=== PATIENT | male | born 1970 | race Two or more races ===

== ENCOUNTER 2017-01-29 15:29 | Emergency (ER) | payer BC ==
[~2017-01-29] VITALS: Ht 165.1 cm; Wt 74.8 kg
[2017-01-29 15:41] VITALS: BP 125/84
[2017-01-29] MEDS ORDERED: KETOROLAC TROMETHAMINE 30 MG/ML SYRINGE. IV ONE (16:00)
--- NOTE | 2017-01-29 16:12 | PHYS DOC ---
Past Medical History Past Medical History: No Pertinent History Past Surgical History: No Surgical History Alcohol Use: None Drug Use: None Adult General Chief Complaint Chief Complaint: FLANK PAIN [facility] HPI 46-year-old male who states she's had worsening right sided flank pain for the last 3-4 days. He denies any injury to his back. He states his pain is all localized to right flank region and does not radiate. He denies any abdominal pain. He states bowel movement been normal. He denies any dysuria or hematuria. He denies any fever or chills. He denies any nausea or vomiting. He denies any history of health problems. He does not take any medications. He denies any known allergies. He currently rates his pain a 9 out of 10 all localized to the right flank region. He is speaking in complete sentences and does not appear to be in any distress. Review of Systems Review of Systems Constitutional: Denies fever or chills [] Eyes: Denies change in visual acuity, redness, or eye pain [] HENT: Denies nasal congestion or sore throat [] Respiratory: Denies cough or shortness of breath [] Cardiovascular: No additional information not addressed in HPI [] GI: Denies abdominal pain, nausea, vomiting, bloody stools or diarrhea [] : Denies dysuria or hematuria [] Musculoskeletal: Denies back pain or joint pain [] Integument: Denies rash or skin lesions [] Neurologic: Denies headache, focal weakness or sensory changes [] Endocrine: Denies polyuria or polydipsia [] Current Medications Current Medications Current Medications Medications (Trade) Dose Ordered [facility] [place] Start Time Stop Time Status Last Admin Dose Admin Ketorolac Tromethamine (Toradol) 30 mg 1X ONCE 01/29/17 16:00 01/29/17 16:01 DC 01/29/17 16:37 30 MG Allergies Allergies Allergies Coded Allergies Type Severity Reaction Last Updated Verified No Known Drug Allergies 01/29/17 No Physical Exam Physical Exam Constitutional: Well developed, well nourished, no acute distress, non-toxic appearance. [] HENT: Normocephalic, atraumatic, bilateral external ears normal, oropharynx moist, no oral exudates, nose normal. [] Eyes: PERRLA, EOMI, conjunctiva normal, no discharge. [] Neck: Normal range of motion, no tenderness, supple, no stridor. [] Cardiovascular:Heart rate regular rhythm, no murmur [] Lungs & Thorax: Bilateral breath sounds clear to auscultation [] Abdomen: Bowel sounds normal, soft, no tenderness, no masses, no pulsatile masses. [] Skin: Warm, dry, no erythema, no rash. [] Back: No tenderness, right CVA tenderness. [] Extremities: No tenderness, no cyanosis, no clubbing, ROM intact, no edema. [] Neurologic: Alert and oriented X 3, normal motor function, normal sensory function, no focal deficits noted. [] Psychologic: Affect normal, judgement normal, mood normal. [] Current Patient Data Vital Signs Vital Signs Date Time Temp Pulse Resp B/P Pulse Ox O2 Delivery O2 Flow Rate FiO2 01/29/17 15:41 98.4 74 20 125/84 99 Room Air 98.4 Lab Values Laboratory Tests Test 01/29/17 16:30 01/29/17 16:50 White Blood Count 9.7x10^3/uL (4.0-11.0) Red Blood Count 4.95x10^6/uL (4.30-5.70) Hemoglobin 13.2g/dL (13.0-17.5) Hematocrit 41.2% (39.0-53.0) Mean Corpuscular Volume 83fL (79-100) Mean Corpuscular Hemoglobin 27pg (25-35) Mean Corpuscular Hemoglobin Concent 32g/dL (31-37) Red Cell Distribution Width 14.4% (11.5-14.5) Platelet Count 143x10^3/uL (140-400) Neutrophils (%) (Auto) 73% (31-73) Lymphocytes (%) (Auto) 11% (24-48) L Monocytes (%) (Auto) 14% (0-9) H Eosinophils (%) (Auto) 1% (0-3) Basophils (%) (Auto) 0% (0-3) Neutrophils # (Auto) 7.1x10^3uL (1.8-7.7) Lymphocytes # (Auto) 1.1x10^3/uL (1.0-4.8) Monocytes # (Auto) 1.4x10^3/uL (0.0-1.1) H Eosinophils # (Auto) 0.1x10^3/uL (0.0-0.7) Basophils # (Auto) 0.0x10^3/uL (0.0-0.2) Sodium Level 143mmol/L (136-145) Potassium Level 4.1mmol/L (3.5-5.1) Chloride Level 107mmol/L (98-107) Carbon Dioxide Level 27mmol/L (21-32) Anion Gap 9 (6-14) Blood Urea Nitrogen 14mg/dL (8-26) Creatinine 1.0mg/dL (0.7-1.3) Estimated GFR (Cockcroft-Gault) 79.8 Glucose Level 95mg/dL (70-99) Calcium Level 8.8mg/dL (8.5-10.1) Urine Collection Type Unknown Urine Color Yellow Urine Clarity Clear Urine pH 6.0 Urine Specific [place] >=1.030 Urine Protein Negativemg/dL (NEG-TRACE) Urine Glucose (UA) Negativemg/dL (NEG) Urine Ketones (Stick) Negativemg/dL (NEG) Urine Blood Negative (NEG) Urine Nitrite Negative (NEG) Urine Bilirubin Negative (NEG) Urine Urobilinogen Dipstick 0.2mg/dL (0.2 mg/dL) Urine Leukocyte Esterase Negative (NEG) Urine RBC Occ/HPF (0-2) Urine WBC 0/HPF (0-4) Urine Bacteria 0/HPF (0-FEW) Urine Mucus Mod/LPF Laboratory Tests 01/29/17 16:30 Laboratory Tests 01/29/17 16:30 EKG EKG [] Radiology/Procedures Radiology/Procedures [] Course & Med Decision Making Course & Med Decision Making Pertinent Labs and Imaging studies reviewed. (See chart for details) This otherwise healthy 46-year-old male with isolated right flank pain will have laboratory workup and imaging to rule out any acute cause specifically ureteral stone. A dose of Toradol will be given for pain. Laboratory workup was unremarkable. A CT of his abdomen and pelvis without contrast did not reveal any evidence of ureteral calculi or obstructive uropathy. He does have small bilateral renal cysts and a renal sonogram will be recommended. His pain is likely musculoskeletal in light of his negative workup. I will intake counselor him to continue to take ibuprofen and will add a muscle relaxant. I'll instruct him to avoid any strenuous exercise or activities. Dragon Disclaimer Dragon Disclaimer This electronic medical record was generated, in whole or in part, using a voice recognition dictation system. Departure Departure Impression: Primary Impression: Flank pain Disposition: 01 HOME, SELF-CARE Admitting Physician: Other Condition: STABLE Referrals: NO PCP (PCP) Patient Instructions: Flank Pain, [id number] Additional Instructions: Please continue to take motrin every 6 hours for your pain and take your muscle relaxant as prescribed. Follow up closely with your primary doctor in the next 2 -3 days for your symptoms. Return to the ER if you develop any worsening of your symptoms. Scripts Cyclobenzaprine Hcl 10 Mg [id number] Mg PO TID #15 TAB Prov:DION HALLMAN DO 01/29/17 DION HALLMAN DO Jan 29, 2017 16:12
--- NOTE | 2017-01-29 16:39 | RAD ---
EXAM: Abdomen and pelvis CT without intravenous contrast. HISTORY: Right flank pain. TECHNIQUE: Computed tomographic images of the abdomen and pelvis were obtained without contrast. Multiplanar reformatting was performed. COMPARISON: None. FINDINGS: Evaluation of the lower thorax demonstrates right posterior dependent and basilar atelectasis or scarring. There is no infiltrate or effusion. No hepatic lesion is seen. The gallbladder, pancreas, spleen and adrenal glands are unremarkable. There is a 1.6 cm left renal cyst. There is a 1.3 cm right renal cyst. There is no evidence of nephrolithiasis or obstructive uropathy. There is a phlebolith within the right hemipelvis no pathologically enlarged lymph node is seen. There is no suspicious osseous lesion. There is a transitional lumbosacral segment. IMPRESSION: 1. No evidence of nephrolithiasis or obstructive uropathy. 2. Small bilateral renal cysts. Renal sonography can be performed to confirm benignity. PQRS Compliance Statement: One or more of the following individualized dose reduction techniques were utilized for this examination: 1. Automated exposure control 2. Adjustment of the mA and/or kV according to patient size 3. Use of iterative reconstruction technique
[2017-01-29 16:48] LABS: BASO % 0 % (0-3); EOS % 1 % (0-3); HEMATOCRIT 41.2 % (39.0-53.0); HEMOGLOBIN 13.2 g/dL (13.0-17.5); LYMPH # 1.1 x10^3/uL (1.0-4.8); LYMPH % 11 % (24-48); MEAN CORPUSCULAR HEMOGLOBIN 27 pg (25-35); MEAN CORPUSCULAR HGB CONC 32 g/dL (31-37); MEAN CORPUSCULAR VOLUME 83 fL (79-100); MONO % 14 % (0-9); NEUT % 73 % (31-73); PLATELET COUNT 143 x10^3/uL (140-400); RED BLOOD COUNT 4.95 x10^6/uL (4.30-5.70); RED CELL DISTRIBUTION WIDTH 14.4 % (11.5-14.5); WHITE BLOOD COUNT 9.7 x10^3/uL (4.0-11.0)
[2017-01-29 16:56] LABS: BILIRUBIN,URINE NEGATIVE (NEG); GLUCOSE,URINE NEGATIVE (NEG); NITRITE,URINE NEGATIVE (NEG); PROTEIN,URINE NEGATIVE (NEG-TRACE); UROBILINOGEN,URINE 0.2 mg/dL (0.2 mg/dL)
[2017-01-29 17:02] LABS: CALCIUM 8.8 mg/dL (8.5-10.1); GFR 79.8; POTASSIUM 4.1 mmol/L (3.5-5.1)
[2017-01-29 17:02] LABS: BACTERIA,URINE 0 /HPF (0-FEW); RBC,URINE OCC /HPF (0-2); WBC,URINE 0 /HPF (0-4)
[2017-01-29] MEDS ORDERED: CYCL10TA2 PO (17:13)
== END 2017-01-29 17:46 | disposition home or self-care (01) ==
LOC: ER 15:29
DX: R10.9 Unspecified abdominal pain (principal)
CPT/HCPCS: 36415; 74176; 80048; 81001; 85027; 96374; 99285; J1885

== ENCOUNTER 2018-08-15 15:10 | Emergency (ER) | payer BC ==
[~2018-08-15] VITALS: Ht 165.1 cm; Wt 74.8 kg
[~2018-08-15 15:10] MED LIST: CYCL10TA2 PO
[2018-08-15 15:19] VITALS: BP 121/82
[2018-08-15] MEDS ORDERED: DICL50TA4 PO (15:46)
[2018-08-15] MEDS ORDERED: CYCL10TA2 PO (15:46)
[2018-08-15] MEDS ORDERED: METH4TAB2 PO (15:46)
--- NOTE | 2018-08-15 15:46 | PHYS DOC ---
Past Medical History Past Medical History: Other Additional Past Medical Histor: back pain Past Surgical History: No Surgical History Alcohol Use: Occasionally Drug Use: None Adult General Chief Complaint Chief Complaint: BACK PAIN OR INJURY HPI HPI Patient is a 48 year old male who presents with 8 out of 10 sharp intermittent bilateral low back pain worse on movement that began 4 days ago. Patient denies any known injury. He states he has had similar pain before. He states he was given some pain medications and that relieved his symptoms. Patient denies any loss of bowel bladder function. Denies any urinary symptoms. Review of Systems Review of Systems Constitutional: Denies fever or chills [] GI: Denies abdominal pain, nausea, vomiting, bloody stools or diarrhea [] : Denies dysuria or hematuria [] Musculoskeletal: Reports bilateral low back pain Integument: Denies rash or skin lesions [] Neurologic: Denies headache, focal weakness or sensory changes [] All other systems were reviewed and found to be within normal limits, except as documented in this note. Allergies Allergies Allergies Coded Allergies Type Severity Reaction Last Updated Verified No Known Drug Allergies 01/29/17 No Physical Exam Physical Exam Constitutional: Well developed, well nourished, no acute distress, non-toxic appearance. [] Abdomen: Bowel sounds normal, soft, no tenderness, no masses, no pulsatile masses. [] Skin: Warm, dry, no erythema, no rash. [] Back: No tenderness, no CVA tenderness. [] Extremities: No tenderness, no cyanosis, no clubbing, ROM intact, no edema. [] Neurologic: Alert and oriented X 3, normal motor function, normal sensory function, no focal deficits noted. [] Psychologic: Affect normal, judgement normal, mood normal. [] Current Patient Data Vital Signs Vital Signs Date Time Temp Pulse Resp B/P (MAP) Pulse Ox O2 Delivery O2 Flow Rate FiO2 08/15/18 15:19 98.1 90 20 121/82 (95) 100 Room Air 98.1 EKG EKG [] Radiology/Procedures Radiology/Procedures [] Course & Med Decision Making Course & Med Decision Making Pertinent Labs and Imaging studies reviewed. (See chart for details) This is a 48-year-old male patient presenting to the ED today with low back pain , no known injury, patient appears musculoskeletal, has had similar symptoms before. Does not have any cauda equina syndrome symptoms. Will be discharged with cyclobenzaprine, Medrol Dosepak and diclofenac. Follow-up with PCP in 1-2 weeks. Heat recommended to the low back. Alfredo Disclaimer Alfredo Disclaimer This electronic medical record was generated, in whole or in part, using a voice recognition dictation system. Departure Departure Impression: Primary Impression: Low back pain Disposition: HOME, SELF-CARE Condition: STABLE Referrals: NO PCP (PCP) Follow-up with your own doctor in 1-2 weeks Patient Instructions: Back Pain, Adult, [id number] Additional Instructions: You were evaluated in the emergency room for low back pain, take the prescribed medications as ordered. Apply heat to the affected area. Avoid heavy lifting for 3 days. Follow up with your doctor as needed Scripts Methylprednisolone (MEDROL) 4 Mg Tab.ds.pk 1 PKG PO UD, #1 PKG Prov: ISABELLA STANLEY APRN 08/15/18 Diclofenac Sodium (DICLOFENAC SODIUM) 50 Mg Tablet.dr 1 TAB PO BID, #30 TAB 0 Refills Prov: ISABELLA STANLEY APRN 08/15/18 Cyclobenzaprine Hcl (CYCLOBENZAPRINE HCL) 10 Mg Tablet 1 TAB PO TID, #30 TAB Prov: ISABELLA STANLEY APRN 08/15/18 Problem Qualifiers Primary Impression: Low back pain Chronicity: acute Back pain laterality: bilateral Sciatica presence: without sciatica Qualified Codes: M54.5 - Low back pain ISABELLA STANLEY APRN Aug 15, 2018 15:46
== END 2018-08-15 15:50 | disposition home or self-care (01) ==
LOC: ER 15:10
DX: M54.5 Low back pain (principal)
CPT/HCPCS: 99283

== ENCOUNTER 2019-06-21 10:20 | Emergency (ER) | payer SELFPAY ==
[~2019-06-21] VITALS: Ht 170.2 cm; Wt 74.8 kg
[~2019-06-21 10:20] MED LIST changes: +DICL50TA4 PO; +METH4TAB2 PO
[2019-06-21 10:29] VITALS: BP 144/95
--- NOTE | 2019-06-21 11:13 | PHYS DOC ---
Past Medical History Past Medical History: Other Additional Past Medical Histor: back pain Past Surgical History: No Surgical History Alcohol Use: Occasionally Drug Use: None Adult General Chief Complaint Chief Complaint: KNEE INJURY HPI HPI Patient is a 49 year old male who presents with complaining of left knee pain. Patient complaining of nontraumatic left knee pain for the last 2 weeks as a constant sharp pain that getting worse at night and with walking. Patient rated his pain 5/10 in ER and associated increased to 10 over 10 while sleeping. Patient complaining of numbness of bilateral medial legs for several months without new changed recently. Patient had bilateral lower extremity varicosities vein and denies injury to his knee or kneeling. Patient took ibuprofen intermittently for the last 2 weeks with partial improvement of his pain. Review of Systems Review of Systems Constitutional: Denies fever or chills [] Eyes: Denies change in visual acuity, redness, or eye pain [] HENT: Denies nasal congestion or sore throat [] Respiratory: Denies cough or shortness of breath [] Cardiovascular: No additional information not addressed in HPI [] GI: Denies abdominal pain, nausea, vomiting, bloody stools or diarrhea [] : Denies dysuria or hematuria [] Musculoskeletal: Denies back pain, reports joint pain [] Integument: Denies rash or skin lesions [] Neurologic: Denies headache, focal weakness or sensory changes [] Endocrine: Denies polyuria or polydipsia [] All other systems were reviewed and found to be within normal limits, except as documented in this note. Allergies Allergies Allergies Coded Allergies Type Severity Reaction Last Updated Verified No Known Drug Allergies 01/29/17 No Physical Exam Physical Exam Constitutional: Well developed, well nourished, mild distress, non-toxic appearance. [] HENT: Normocephalic, atraumatic. Eyes: PERRLA, EOMI, conjunctiva normal, no discharge. [] Neck: Normal range of motion, no tenderness, supple, no stridor. [] Cardiovascular:Heart rate regular rhythm, no murmur [] Lungs & Thorax: Bilateral breath sounds clear to auscultation [] Abdomen: Bowel sounds normal, soft, no tenderness, no masses, no pulsatile masses. [] Skin: Warm, dry, no erythema, no rash. [] Back: No tenderness, no CVA tenderness. [] Extremities: Left knee without deformity or edema, bilateral lower extremity moderate varicose vein, normal neurovascular deficit, No tenderness, no cyanosis, no clubbing, ROM intact, no edema. [] Neurologic: Alert and oriented X 3, no focal deficits noted. [] Psychologic: Affect normal, judgement normal, mood normal. [] Current Patient Data Vital Signs Vital Signs Date Time Temp Pulse Resp B/P (MAP) Pulse Ox O2 Delivery O2 Flow Rate FiO2 06/21/19 10:29 98.6 93 15 144/95 (111) 97 Room Air 98.6 EKG EKG [] Radiology/Procedures Radiology/Procedures [][facility] [address] [place] [address] IMAGING REPORT Signed PATIENT: PITA UNGER ACCOUNT: [id number] : 1970 LOCATION: ER AGE: 49 SEX: M EXAM STATUS: REG ER ORD. PHYSICIAN: ODESSA MILLER MD REASON: pain without injury PROCEDURE: KNEE LEFT 4V EXAM: AP, oblique, tangential patellar and lateral views of the left knee DATE: 06/21/2019 10:50 AM INDICATION: Pain without injury COMPARISON: No Prior FINDINGS/ IMPRESSION: No evidence of acute fracture or dislocation. Joint spaces are preserved without significant degenerative/proliferative change. No left knee joint effusion. Patellar enthesopathy. Neutral patellar tracking. Electronically signed by: Trell Sky MD (06/21/2019 11:56 AM) [facility] DICTATED and SIGNED BY: TRELL SKY MD DATE: 06/21/19 6166 Course & Med Decision Making Course & Med Decision Making Pertinent Imaging studies reviewed. (See chart for details) Evaluation of patient in ER showed 49-year-old male patient with complaining of nontraumatic left knee pain for 2 weeks. Patient had unremarkable physical exam and x-ray showed no acute fracture. Leandro wrap was applied and prescription for NSAIDs was given and patient was advised to follow-up with his primary care physician. Dragon Disclaimer Dragon Disclaimer This electronic medical record was generated, in whole or in part, using a voice recognition dictation system. Departure Departure Impression: Primary Impression: Degenerative joint disease of left knee Additional Impression: Varicose veins of lower extremity Disposition: HOME, SELF-CARE (at 1149) Condition: STABLE Referrals: NO PCP (PCP) Patient Instructions: Arthritis, Degenerative-Brief, Varicose Vein Surgery Additional Instructions: Drink plenty of liquids Follow-up with your primary care physician in 3-5 days Return to ER if not getting better Scripts Tramadol Hcl (ULTRAM) 50 Mg Tablet 50 MG PO Q6HRS PRN for PAIN, #20 TAB 0 Refills Prov: ODESSA MILLER MD 06/21/19 Naproxen (NAPROSYN) 500 Mg Tablet 1 TAB PO BID for pain, #20 TAB Prov: ODESSA MILLER MD 06/21/19 Methylprednisolone (MEDROL) 4 Mg Tab.ds.pk 1 PKG PO UD for inflammation, #1 PKG Prov: ODESSA MILLER MD 06/21/19 Problem Qualifiers Primary Impression: Degenerative joint disease of left knee Osteoarthritis type: primary Qualified Codes: M17.12 - Unilateral primary osteoarthritis, left knee Additional Impression: Varicose veins of lower extremity Varicose vein complication: asymptomatic Laterality: bilateral Qualified Codes: I83.93 - Asymptomatic varicose veins of bilateral lower extremities ODESSA MILLER MD Jun 21, 2019 11:13
[2019-06-21] MEDS ORDERED: NAPR-683 PO (11:53)
[2019-06-21] MEDS ORDERED: METH4TAB2 PO (11:53)
[2019-06-21] MEDS ORDERED: TRAM-48 PO (11:53)
--- NOTE | 2019-06-21 12:00 | RAD ---
EXAM: AP, oblique, tangential patellar and lateral views of the left knee DATE: 06/21/2019 10:50 AM INDICATION: Pain without injury COMPARISON: No Prior FINDINGS/ IMPRESSION: No evidence of acute fracture or dislocation. Joint spaces are preserved without significant degenerative/proliferative change. No left knee joint effusion. Patellar enthesopathy. Neutral patellar tracking. Electronically signed by: Trell Sky MD (06/21/2019 11:56 AM) [facility]
== END 2019-06-21 11:58 | disposition home or self-care (01) ==
LOC: ER 10:20
DX: M17.12 Unilateral primary osteoarthritis, left knee (principal); I83.93 Asymptomatic varicose veins of bilateral lower extremities
CPT/HCPCS: 73564; 99284